=== PATIENT | male | born 1960 | race Caucasian/White ===

== ENCOUNTER → 2023-04-15 | Outpatient (CLI) | payer BC ==
[2023-04-15 18:12] LABS: ALBUMIN 3.6 G/DL (3.2-5.2); BILIRUBIN,DIRECT 0.1 MG/DL (<0.4); BILIRUBIN,TOTAL 0.4 MG/DL (0.3-1.2); TOTAL PROTEIN 7.3 G/DL (5.7-8.2)
== END ==
LOC: M PLALAB 16:27
PROVIDERS: ATTEND Internal Medicine Critical Care Medicine
DX: Z79.899 Other long term (current) drug therapy (principal)